=== PATIENT | male | born 1980 | race Asian ===

== ENCOUNTER 2019-11-07 08:37 | Emergency (ER) | payer OTHER ==
[2019-11-07 08:44] VITALS: BP 143/96
--- NOTE | 2019-11-07 09:10 | ED Physician Documentation ---
PD HPI HEENT - Stated complaint Stated Complaint: R EAR PX - Chief complaint Chief Complaint: Heent - History obtained from History obtained from: Patient - History of Present Illness Timing - onset: How many days ago (3) Timing - duration: Days (3) Timing - details: Gradual onset, Still present Location: Right ear Worsens: Swalllowing Associated symptoms: Facial swelling. No: Fever, Congestion, Rhinorrhea, Trismus, Headache, Cough Similar symptoms before: Has not had sx before Recently seen: Not recently seen - Additional information Additional information: Appears well 38-year-old male is developed pain in his right ear and swelling in the ear canal. He is never had this happen to him previously. He states that he had some dry skin in his years and was using Q-tips to clean them out. He does not use ear buds he does use earmuffs at work. He is not diabetic and has no other particular medical history.He denies any other intercurrent illness denies any fever cough or congestion Review of Systems Constitutional: denies: Fever, Chills, Myalgias, Fatigue Eyes: denies: Decreased vision Ears: reports: Ear pain, Drainage/discharge. denies: Loss of hearing, Tinnitus/ringing, Foreign body Nose: denies: Rhinorrhea / runny nose, Congestion Throat: denies: Sore throat Respiratory: denies: Dyspnea, Cough GI: denies: Abdominal Pain, Nausea, Vomiting PD PAST MEDICAL HISTORY - Past Medical History Cardiovascular: None Respiratory: None Neuro: None Endocrine/Autoimmune: None GI: None : None HEENT: None Psych: None Musculoskeletal: None Derm: Eczema - Past Surgical History Past Surgical History: No - Present Medications Home Medications: Ambulatory Orders Medication Instructions Recorded Confirmed Neomyc/Colist/Hydrocort/Thonzn 4 drops EACHEAR QID #10 ml 11/07/19 [Cortisporin-Tc Ear Suspension] - Allergies Allergies/Adverse Reactions: Allergies Allergy/AdvReac Type Severity Reaction Status Date / Time No Known Drug Allergies Allergy Verified 11/07/19 08:41 - Social History Does the pt smoke?: No Smoking Status: Never smoker Does the pt drink ETOH?: No Does the pt have substance abuse?: No - Immunizations Immunizations are current?: Yes - POLST Patient has POLST: No PD ED PE NORMAL - Vitals Vital signs reviewed: Yes (Hypertensive) - General General: Alert and oriented X 3, No acute distress, Well developed/nourished - HEENT HEENT: Atraumatic, PERRL, EOMI, Pharynx benign, Dentition benign, Other (The right ear canal is erythematous swollen with some debris. The portion of the TM that is visible is normal-appearing. The left canal is much less involved there is some swelling and erythema.) - Neck Neck: Supple, no meningeal sign, No bony TTP - Cardiac Cardiac: RRR, No murmur - Respiratory Respiratory: No respiratory distress, Clear bilaterally - Derm Derm: Normal color, Warm and dry, No rash - Extremities Extremities: No deformity, No edema - Neuro Neuro: Alert and oriented X 3, home care chaplain 2-12 intact, No motor deficit, No sensory deficit, Normal speech Eye Opening: Spontaneous Motor: Obeys Commands Verbal: Oriented GCS Score: 15 - Psych Psych: Normal mood, Normal affect Results - Vitals Vitals: Vital Signs - 24 hr 11/07/19 08:41 Temperature 36.8 C Heart Rate 90 Respiratory 16 Rate Blood Pressure 143/96 H O2 Saturation 95 Oxygen O2 Source Room air PD MEDICAL DECISION MAKING - ED course Complexity details: considered differential, d/w patient ED course: Previously well 38-year-old active [employer] male with otitis externa. Not exactly sure what the risk for this is he is not a swimmer he does not have diabetes. He is treated with Cortisporin otic. He does not require a wick at this time. Departure - Departure Disposition: 01 Home, Self Care Clinical Impression: Otitis externa Qualifiers: Otitis externa type: unspecified type Chronicity: acute Laterality: bilateral Qualified Code(s): H60.503 - Unspecified acute noninfective otitis externa, bilateral Condition: Stable Instructions: ED Otitis Externa Follow-Up: JENIFER CARR MD [Primary Care Provider] - Prescriptions: Neomyc/Colist/Hydrocort/Thonzn [Cortisporin-Tc Ear Suspension] 4 drops EACHEAR QID #10 ml
== END 2019-11-07 09:16 | disposition home or self-care (01) ==
LOC: ED 08:37
DX: H60.503 Unspecified acute noninfective otitis externa, bilateral (principal)
CPT/HCPCS: 99282; 99284

== ENCOUNTER 2021-01-16 07:47 | Emergency (ER) | payer OTHER ==
[2021-01-16 08:37] LABS: BASOPHILS # (AUTO) 0.1 10^3/uL (0.0-0.1); BASOPHILS % (AUTO) 0.8 %; EOSINOPHILS % (AUTO) 0.4 %; HCT - HEMATOCRIT 47.6 % (42.0-52.0); HGB - HEMOGLOBIN 15.6 g/dL (14.0-18.0); LYMPHOCYTES % (AUTO) 26.3 %; MEAN CORPUSCULAR HEMOGLOBIN 30.9 pg (27.0-31.0); MEAN CORPUSCULAR HGB CONC 32.8 g/dL (32.0-36.0); MEAN CORPUSCULAR VOLUME 94.3 fL (80.0-94.0); MEAN PLATELET VOLUME 9.7 fL (7.4-11.4); MONOCYTES # (AUTO) 0.6 10^3/uL (0.0-1.0); MONOCYTES % (AUTO) 7.6 %; NEUTROPHILS % (AUTO) 64.8 %; PLT - PLATELET COUNT 230 10^3/uL (130-450); RED BLOOD COUNT 5.05 10^6/uL (4.70-6.10); RED CELL DISTRIBUTION WIDTH 11.7 % (12.0-15.0); WHITE BLOOD COUNT 7.6 x10^3/uL (4.8-10.8)
--- NOTE | 2021-01-16 08:38 | XRAY Report ---
PROCEDURE: Chest 1 View X-Ray INDICATIONS: Chest Pain TECHNIQUE: One view of the chest was acquired. COMPARISON: None FINDINGS: Surgical changes and devices: None. Lungs and pleura: No pleural effusions or pneumothorax. Lungs are clear. Mediastinum: Mediastinal contours appear normal. Heart size is normal. Bones and chest wall: No suspicious bony lesions. Overlying soft tissues appear unremarkable. IMPRESSION: No acute pulmonary process. Reviewed by: Dayami Interiano MD on 01/16/2021 8:37 AM PDT Approved by: Dayami Interiano MD on 01/16/2021 8:37 AM PDT Station ID: [id number]
[2021-01-16 08:51] LABS: ALBUMIN 4.7 g/dL (3.2-5.5); ALBUMIN/GLOBULIN RATIO 1.5 (1.0-2.2); BILIRUBIN,TOTAL 0.6 mg/dL (0.2-1.0); CALCIUM 9.3 mg/dL (8.5-10.3); CREATININE 0.7 mg/dL (0.6-1.2); POTASSIUM 3.7 mmol/L (3.5-5.0); TOTAL PROTEIN 7.8 g/dL (6.7-8.2)
[2021-01-16] MEDS ORDERED: CHERRY SYRUP 10 ML UDC PO ONE (09:52)
[2021-01-16] MEDS ORDERED: DEXAMETHASONE 10 MG/ML VIAL PO STA (09:52)
--- NOTE | 2021-01-16 09:54 | ED Physician Documentation ---
PD HPI DYSPNEA - Stated complaint Stated Complaint: SOA,FAST HR - Chief complaint Chief Complaint: Cardiac - History obtained from History obtained from: Patient - History of Present Illness Timing - onset: How many days ago (5-6) Timing - onset during: Light activity, Exertion Timing - duration: Minutes (he will feel dyspnea at times, associated with feeling of heart going fast or skipping.) Timing - details: Gradual onset, Waxing and waning (he will feel dificulty breathing with activity. No noted change in activity nor environmental exposures. No chest pain. ALso feeling skips in heart at times but these are at rest. Infreuqnt.) Inciting event(s): No: URI, Exposure (ie smoke), Immobilization/travel Improved by: Rest Worsened by: Exertion Associated symptoms: Wheezing. No: Fever, Cough, Chest pain / discomfort, Jagjit ateral edema Similar symptoms before: Has not had sx before Recently seen: Not recently seen Review of Systems Constitutional: denies: Fever, Chills Nose: reports: Congestion. denies: Rhinorrhea / runny nose Throat: denies: Sore throat Cardiac: reports: Palpitations. denies: Chest pain / pressure, Pedal edema, Calf pain Respiratory: reports: Dyspnea. denies: Cough, Hemoptysis, Wheezing GI: denies: Abdominal Pain, Nausea, Vomiting, Diarrhea, Bloody / black stool Skin: denies: Rash, Lesions PD PAST MEDICAL HISTORY - Past Medical History Past Medical History: No Cardiovascular: None Respiratory: None Neuro: None Endocrine/Autoimmune: None GI: None : None HEENT: None Psych: None Musculoskeletal: None Derm: Eczema - Past Surgical History Past Surgical History: No - Present Medications Home Medications: Ambulatory Orders Medication Instructions Recorded Confirmed Albuterol Sulf [Ventolin Hfa 2 - 3 puffs INH Q4HR PRN #1 inhaler 01/16/21 Inhaler] - Allergies Allergies/Adverse Reactions: Allergies Allergy/AdvReac Type Severity Reaction Status Date / Time No Known Drug Allergies Allergy Verified 01/16/21 08:05 - Social History Does the pt smoke?: No Smoking Status: Never smoker Does the pt drink ETOH?: No Does the pt have substance abuse?: No - Immunizations Immunizations are current?: Yes - POLST Patient has POLST: No PD ED PE NORMAL - Vitals Vital signs reviewed: Yes - General General: Alert and oriented X 3, No acute distress, Well developed/nourished - HEENT HEENT: Pharynx benign - Neck Neck: Supple, no meningeal sign, No adenopathy - Cardiac Cardiac: RRR, No murmur - Respiratory Respiratory: Clear bilaterally - Abdomen Abdomen: Soft, Non tender Results - Vitals Vitals: Vital Signs - 24 hr 01/16/21 01/16/21 01/16/21 08:02 08:16 10:13 Temperature 36.4 C L 36.1 C L Heart Rate 96 90 87 Respiratory 22 19 18 Rate Blood Pressure 177/108 H 177/108 H 157/103 H O2 Saturation 99 99 100 Oxygen O2 Source Room air - EKG (time done) 07:53 Rate: Rate (enter#) (95) Rhythm: NSR [place]: Normal Intervals: Normal [place] QRS: Normal Ischemia: Normal ST segments. No: ST elevation c/w ischemia, ST depression - Labs Labs: Laboratory Tests 01/16/21 01/16/21 01/16/21 08:32 08:32 08:32 WBC 7.6 RBC 5.05 Hgb 15.6 Hct 47.6 MCV 94.3 H MCH 30.9 MCHC 32.8 RDW 11.7 L Plt Count 230 MPV 9.7 Neut # (Auto) 5.0 Lymph # (Auto) 2.0 [place] # (Auto) 0.6 Eos # (Auto) 0.0 Baso # (Auto) 0.1 Absolute Nucleated RBC 0.00 Nucleated RBC % 0.0 Sodium 141 Potassium 3.7 Chloride 107 Carbon Dioxide 25 Anion Gap 9.0 BUN 13 Creatinine 0.7 Estimated GFR (MDRD) 125 Glucose 121 H Calcium 9.3 Total Bilirubin 0.6 AST 39 ALT 93 H Alkaline Phosphatase 53 Troponin I High Sens B-Natriuretic Peptide 10 Total Protein 7.8 Albumin 4.7 Globulin 3.1 Albumin/Globulin Ratio 1.5 Lipase 41 01/16/21 08:32 WBC RBC Hgb Hct MCV MCH MCHC RDW Plt Count MPV Neut # (Auto) Lymph # (Auto) [place] # (Auto) Eos # (Auto) Baso # (Auto) Absolute Nucleated RBC Nucleated RBC % Sodium Potassium Chloride Carbon Dioxide Anion Gap BUN Creatinine Estimated GFR (MDRD) Glucose Calcium Total Bilirubin AST ALT Alkaline Phosphatase Troponin I High Sens 20.0 H* B-Natriuretic Peptide Total Protein Albumin Globulin Albumin/Globulin Ratio Lipase - Rads (name of study) chest xray Radiology: Prelim report reviewed (clear), See rad report PD MEDICAL DECISION MAKING - ED course Complexity details: reviewed results (tests are good here. His symptoms sound possible reactive airway and can try inhaler. Otherwise to f/u PCP and if persistent, could consider Ziopatch/Holter or such. ), considered differential, d/w patient Departure - Departure Disposition: Home, Self Care Clinical Impression: Dyspnea Qualifiers: Dyspnea type: dyspnea on exertion Qualified Code(s): R06.00 - Dyspnea, unspecified Condition: Stable Record reviewed to determine appropriate education?: Yes Instructions: ED Dyspnea Shortness of Breath Follow-Up: JENIFER CARR MD [Primary Care Provider] - Prescriptions: Albuterol Sulf [Ventolin Hfa Inhaler] 2 - 3 puffs INH Q4HR PRN #1 inhaler PRN Reason: Shortness Of Air/Wheezing Comments: Your EKG, heart rhythm, chest x-ray, and blood tests are normal without any signs of more significant cause such as heart attack, heart failure, pneumonia, collapsed lung, anemia or diabetes. By your symptoms, I would feel your shortness of breath relates to some bronchial irritation. We can try an albuterol inhaler 2 to 3 puffs 4 times a day regularly for the next several days to week and then as needed. If you are noticing improvement with this then continue with it as needed. If you are not feeling better over the next couple of days, follow-up with your primary care for further evaluation. Discharge Date/Time: 01/16/21 10:15
[2021-01-16 10:14] VITALS: BP 157/103
== END 2021-01-16 10:15 | disposition home or self-care (01) ==
LOC: ED 07:47
DX: R06.00 Dyspnea, unspecified (principal); I25.2 Old myocardial infarction
CPT/HCPCS: 36415; 71045; 80053; 83690; 83880; 84484; 85025; 93005; 99284; A9270

== ENCOUNTER 2024-03-24 15:34 | Outpatient (CLI) | payer OTHER ==
--- NOTE | 2024-03-24 20:51 | MRI Report ---
PROCEDURE: Lumbar Spine WO INDICATIONS: SCIATICA TECHNIQUE: Noncontrast sagittal T1 spin echo and T2 fast echo, sagittal STIR, axial T1 and T2 fast spin echo thr ough the lumbar spine. In cases with scoliosis, additional coronal T2 fast spin echo may be performe d. COMPARISON: None. FINDINGS: Image quality: Excellent. Alignment and Curvature: There is normal bony alignment. Bone Marrow: Marrow is of normal overall signal. No acute vertebral body compression fractures. Spinal Cord: Conus medullaris terminates at the L1 level. Visualized cord demonstrates normal signa l and size. Paraspinous Soft Tissues: No paravertebral masses. T12-L1: Normal in appearance. L1-L2: Left greater than right facet effusions. L2-L3: Left greater than right facet effusions. L3-L4: Mild facet hypertrophy. Broad-based disc bulge with superimposed right subarticular protrusi on. L4-L5: Broad-based disc bulge. Trace left facet effusion. L5-S1: Disc desiccation. Broad-based disc bulge. Small and facet effusion. IMPRESSION: Multilevel degenerative disc disease and facet arthrosis. No significant spinal canal or neural ernst inal narrowing. Of note, there is a broad-based disc bulge with superimposed right subarticular protr usion at L3-4. Reviewed by: Agusto Lewis MD on 03/24/2024 8:49 PM PDT Approved by: Agusto Lewis MD on 03/24/2024 8:49 PM PDT Station ID: [id number]
--- NOTE | 2024-03-24 20:52 | MRI Report ---
PROCEDURE: Thoracic Spine WO INDICATIONS: DORSALGIA TECHNIQUE: Noncontrast sagittal T1 spine echo and T2 fast spin echo, sagittal STIR, axial T1 and T2 fast spin ec ho through the thoracic spine. COMPARISON: None. FINDINGS: Image quality: Excellent. Alignment and Curvature: There is normal bony alignment. Bone Marrow: Marrow is of normal overall signal. No acute vertebral body compression fractures. Spinal Cord: Visualized spinal cord is normal in size and signal. Paraspinous Soft Tissues: No paravertebral masses. Miscellaneous: On axial images, central canal and foramina appear widely patent at all scanned level s. IMPRESSION: No significant degenerative disc disease. Reviewed by: Agusto Lewis MD on 03/24/2024 8:50 PM PDT Approved by: Agusto Lewis MD on 03/24/2024 8:50 PM PDT Station ID: [id number]
== END 2024-03-24 15:35 | disposition home or self-care (01) ==
LOC: DI 15:34
PROVIDERS: ATTEND Internal Medicine
DX: M51.26 Other intervertebral disc displacement, lumbar region (principal); M47.816 Spondylosis without myelopathy or radiculopathy, lumbar region; M51.36 Other intervertebral disc degeneration, lumbar region; M51.37 Other intervertebral disc degeneration, lumbosacral region